=== PATIENT | male | born 1985 | race Caucasian/White ===

== ENCOUNTER 2022-02-13 18:45 | Emergency (ER) | payer BC, OTHER, SELFPAY ==
[2022-02-13 18:47] VITALS: BP 139/76; PULSE 92; RESP 20; TEMP 36.7; O2SAT 98; BMI 61.9
[2022-02-13 19:00] VITALS: BP 123/62; PULSE 64; RESP 16; TEMP 36.7; O2SAT 92
--- NOTE | 2022-02-13 19:39 | [facility].EDBACK ---
Discharge Plan Disposition Patient Disposition: Home, Self-Care Condition: Fair Prescriptions Prescriptions: New prednisone 20 mg tablet 60 mg PO DAILY Qty: 15 0RF ketorolac 10 mg Tablet 10 mg PO Q6H PRN (Reason: pain.) Qty: 8 0RF No Action cyclobenzaprine 10 mg tablet 10 mg PO TID citalopram 40 mg Tablet 40 mg PO DAILY hydrochlorothiazide 25 mg Tablet 25 mg PO DAILY furosemide [Lasix] 20 mg Tablet 20 mg PO DAILY PRN (Reason: dependent edema) lisinopril 40 mg Tablet 40 mg PO DAILY aripiprazole [Abilify] 5 mg Tablet 5 mg PO DAILY pregabalin 100 mg capsule 100 mg PO DAILY omeprazole 20 mg Tablet,Delayed Release (Dr/Ec) 20 mg PO DAILY Referrals Follow up/Referrals: Maria G Orozco APRN [Primary Care Provider] - See instructions Activity Restrictions/Add. Instructions Additional Instructions/Restrictions: Avoid heavy lifting and or bending or stooping your back. Follow-up with your primary care doctor in about 3 to 4 days if no improvement. Return to the emergency department if you feel worse in any way. Clinical Impressions Clinical Impression: Lumbar radiculopathy Instructions Patient Instructions: DI for Low Back Pain Discharge ED Provider: Crow Marino Back Pain HPI General Chief Complaint: Back Pain/Injury Stated Complaint: Back Pain Time Seen by Provider: 02/13/22 19:39 Mode of Arrival: Ambulatory Limitations: No Limitations Description of Symptoms (Recalled from ER Triage Doc. by RN): PT WITH CHRONIC LOW BACK PAIN. REPORTS LOW BACK PAIN THAT RADIATES TO BOTH LEGS. BEGAN TO WORSEN LAST NIGHT. NO INJURY History of Present Illness HPI Narrative: The patient presents to the emergency department complaining of an exacerbation of chronic low back pain. It started spontaneously while sitting at work today. He has a known history of radiculopathy. He denies any new symptoms only worsening of old symptoms. He says that it is not shooting down his legs this time. He denies any other complaints. Related Data Home Medications Medication Instructions Recorded Confirmed aripiprazole 5 mg tablet (Abilify) 5 mg PO DAILY bipolar 02/13/22 02/13/22 citalopram 40 mg tablet 40 mg PO DAILY Depression 02/13/22 02/13/22 cyclobenzaprine 10 mg tablet 10 mg PO TID muscle spasms 02/13/22 02/13/22 furosemide 20 mg tablet (Lasix) 20 mg PO DAILY PRN dependent edema 02/13/22 02/13/22 hydrochlorothiazide 25 mg tablet 25 mg PO DAILY htn 02/13/22 02/13/22 lisinopril 40 mg tablet 40 mg PO DAILY htn 02/13/22 02/13/22 omeprazole 20 mg tablet,delayed 20 mg PO DAILY GERD 02/13/22 02/13/22 release pregabalin 100 mg capsule 100 mg PO DAILY nerve pain 02/13/22 02/13/22 Previous Rx's Medication Instructions Recorded ketorolac 10 mg tablet 10 mg PO Q6H PRN pain. #8 tabs 02/13/22 prednisone 20 mg tablet 60 mg PO DAILY #15 tabs 02/13/22 Allergies Allergy/AdvReac Type Severity Reaction Status Date / Time tramadol Allergy Verified 02/13/22 19:01 [facility] Medical History Bulging disc Chronic GERD Depression Fibromyalgia High blood pressure Neurogenic bladder PTSD (post-traumatic stress disorder) Radiculopathy due to disorder of intervertebral disc of lumbar spine Social History Smoking Status: Current every day smoker alcohol intake: never current occupational status: employed Travel in the last 8 weeks: None ROS Obtained: Yes All systems reviewed & no additional complaints except as documented Physical Exam General General appearance: alert and in no apparent distress Head Head exam: atraumatic, normocephalic and normal inspection Eye Eye exam: Present normal appearance, PERRL and EOMI ENT ENT exam: Present normal exam, normal oropharynx, mucous membranes moist, TM's normal bilaterally and normal external ear exam Neck Ne
[2022-02-13 20:33] VITALS: BP 121/61; PULSE 62; RESP 16; TEMP 36.6; O2SAT 94
== END 2022-02-13 20:35 | disposition home or self-care (01) ==
PROVIDERS: Emergency Provider Emergency Medicine; PCP Nurse Practitioner
DX: M54.16 Radiculopathy, lumbar region (principal); M51.26 Other intervertebral disc displacement, lumbar region; R60.0 Localized edema; I10 Essential (primary) hypertension; K21.9 Gastro-esophageal reflux disease without esophagitis; G89.29 Other chronic pain; M79.7 Fibromyalgia; N31.9 Neuromuscular dysfunction of bladder, unspecified; F43.10 Post-traumatic stress disorder, unspecified; F17.210 Nicotine dependence, cigarettes, uncomplicated; Z79.899 Other long term (current) drug therapy
CPT/HCPCS: 96372; 99284